=== PATIENT | male | born 1940 | race African-American/Black ===

== ENCOUNTER 2021-09-26 17:29 | Inpatient (IN) | payer MEDICARE ==
[~2021-09-26] VITALS: Ht 167.6 cm; Wt 59.0 kg
[2021-09-26] MEDS ORDERED: ONDANSETRON HCL 4MG/2ML INJ IV STA (17:38)
[2021-09-26] MEDS ORDERED: MORPHINE SULFATE 4 MG/ML CPJ (NOT FOR IM USE) IV STA (17:38)
[2021-09-26 19:21] LABS: BASOPHILS % 0.7 % (0.0-2.0); EOSINOPHILS % 1.2 % (0.0-5.0); HEMATOCRIT. 25.5 % (42.0-52.0); HEMOGLOBIN. 8.2 g/dL (14.0-18.0); MEAN CORPUSCULAR HEMOGLOBIN 34.5 pg (28.0-32.0); MONOCYTES % 8.8 % (2.0-8.0); NEUTROPHILS % 61.3 % (40.0-76.0); PLATELET 177 x1000/uL (130-400); RED BLOOD CELL COUNT 2.38 mill/uL (4.7-6.1); RED CELL DISTRIBUTION WIDTH 21.8 % (11.6-14.6)
[2021-09-26 19:26] LABS: CHLORIDE 114 mEq/L (98-107)
[2021-09-26 19:28] LABS: INR 1.2; PROTHROMBIN TIME 12.6 sec (9.6-11.0)
[2021-09-26] MEDS ORDERED: POTASSIUM CHLORIDE 20MEQ TABLET SR PO ONE (19:45)
[2021-09-26] MEDS ORDERED: SODIUM CHLORIDE 0.9% 1,000 ML IV ONE (19:45)
[2021-09-26] MEDS ORDERED: SODIUM CHLORIDE 0.9% 1000ML BAG (SEPSIS BOLUS) IV ONE (20:00)
[2021-09-26] MEDS ORDERED: PIPERACILLIN/TAZ 3.375G PREMIX 50 ML IV NR (20:00)
[2021-09-26] MEDS ORDERED: VANCOMYCIN 1G PREMIX 200 ML IV NR (20:00)
[2021-09-26] MEDS ORDERED: GUAIFENESIN 200MG/10ML SUGAR FREE UDC PO PRN (21:15)
[2021-09-26] MEDS ORDERED: HYDROMORPHONE HCL/PF 2MG/ML CPJ IV PRN (21:15)
[2021-09-26] MEDS ORDERED: ONDANSETRON HCL 4MG/2ML INJ IV PRN (21:15)
[2021-09-26] MEDS ORDERED: DOCUSATE SODIUM 100MG CAPSULE PO PRN (21:15)
[2021-09-26] MEDS ORDERED: HYDROCODONE/APAP 7.5/325MG 1 TAB TABLET PO PRN (21:15)
[2021-09-26] MEDS ORDERED: ACETAMINOPHEN 325MG TABLET PO PRN (21:15)
[2021-09-26] MEDS ORDERED: MAGNESIUM/ALUMINUM HYDROXIDE/SIMETHICONE 30ML UDC PO PRN (21:15)
[2021-09-26] MEDS ORDERED: TRAMADOL 50MG TABLET PO PRN (21:15)
[2021-09-26] MEDS ORDERED: NALOXONE HCL 0.4MG/ML VIAL IV PRN (21:30)
[2021-09-26] MEDS ORDERED: DEXT 5%/0.45% NACL KCL 10MEQ/L 1,000 ML IV SCH (22:00)
[2021-09-26] MEDS ORDERED: ENOXAPARIN 30MG/0.3ML SYR SUBCUT SCH (22:00)
[2021-09-26] MEDS: MULTIVITAMINS,THER W-MINERALS TABLET PO SCH (23:30)
[2021-09-26] MEDS: DEXT 5%/0.45% NACL KCL 10MEQ/L 1,000 ML IV SCH (23:30)
[2021-09-27 05:17] LABS: BASOPHILS % 0.9 % (0.0-2.0); EOSINOPHILS % 1.5 % (0.0-5.0); HEMATOCRIT. 23.6 % (42.0-52.0); HEMOGLOBIN. 7.5 g/dL (14.0-18.0); LYMPHOCYTES % 26.6 % (20.0-50.0); MEAN CORPUSCULAR HEMOGLOBIN 34.4 pg (28.0-32.0); MEAN CORPUSCULAR VOLUME 108.6 fL (80.0-94.0); MONOCYTES % 9.4 % (2.0-8.0); NEUTROPHILS % 61.6 % (40.0-76.0); PLATELET 174 x1000/uL (130-400); RED BLOOD CELL COUNT 2.17 mill/uL (4.7-6.1); RED CELL DISTRIBUTION WIDTH 21.8 % (11.6-14.6)
[2021-09-27 05:25] LABS: CHLORIDE 114 mEq/L (98-107)
[2021-09-27 05:45] LABS: HDL CHOLESTEROL 39 mg/dL (40-59); LDL CHOLESTEROL 95 mg/dL (5-100)
[2021-09-27 09:40] VITALS: BP 115/36
[2021-09-27] MEDS: MULTIVITAMINS,THER W-MINERALS TABLET PO SCH (10:42)
[2021-09-27 12:00] VITALS: BP 115/36
[2021-09-27] MEDS: DEXT 5%/0.45% NACL KCL 10MEQ/L 1,000 ML IV SCH (12:20)
[2021-09-27] MEDS ORDERED: DEXT 5%/0.45% NACL KCL 10MEQ/L 1,000 ML IV SCH (13:00)
[2021-09-27 16:00] VITALS: BP 101/40
[2021-09-27 16:05] VITALS: BP 104/60
[2021-09-27 16:07] LABS: TOTAL IRON BINDING CAPACITY 125 ug/dL (250-450)
[2021-09-27 16:16] VITALS: BP 101/70
[2021-09-27 16:36] LABS: VITAMIN B12 SERUM 525 pg/mL (211-911)
== END 2021-09-27 17:30 | disposition short-term general hospital (02) | DRG 722 ==
LOC: ER 17:29 → MICUSO 19:06 → EDBEDREQ 19:11 → EDBEDREQTM 19:11 → 6EST 09-27 08:47
PROVIDERS: ADMIT Hospitalist; ATTEND Hospitalist
DX: C61 Malignant neoplasm of prostate (principal); E43 Unspecified severe protein-calorie malnutrition; L89.153 Pressure ulcer of sacral region, stage 3; C79.51 Secondary malignant neoplasm of bone; R62.7 Adult failure to thrive; I10 Essential (primary) hypertension; M54.9 Dorsalgia, unspecified; E78.00 Pure hypercholesterolemia, unspecified; I71.2 Thoracic aortic aneurysm, without rupture; D53.9 Nutritional anemia, unspecified; R74.8 Abnormal levels of other serum enzymes; R79.89 Other specified abnormal findings of blood chemistry; E11.9 Type 2 diabetes mellitus without complications; I25.10 Atherosclerotic heart disease of native coronary artery without angina pectoris; Z74.01 Bed confinement status; Z86.73 Personal history of transient ischemic attack (TIA), and cerebral infarction without residual deficits; Z68.21 Body mass index [BMI] 21.0-21.9, adult; Z91.14 Patient's other noncompliance with medication regimen; Z68.20 Body mass index [BMI] 20.0-20.9, adult; L89.222 Pressure ulcer of left hip, stage 2
CPT/HCPCS: 36415; 71045; 71250; 74176; 80053; 80061; 82607; 83540; 83550; 83605; 84145; 84484; 85025; 86850; 86900; 93005; 93970; 99291; J1650; J2543; J3370; J7030